=== PATIENT | female | born 1990 | race Caucasian/White ===

== ENCOUNTER 2016-08-13 09:07 | Emergency (ER) | payer MEDICAID ==
--- NOTE | 2016-08-13 10:07 | EDM.PDOC ---
ED HPI Skin/Rash - General Chief Complaint: Skin Complaint Stated Complaint: CYST ON BOTTOM Time Seen by Provider: 08/13/16 10:06 Source: Reports: Patient History Limitations: Reports: No limitations - History of Present Illness INITIAL COMMENTS - FREE TEXT/NARRATIVE: HISTORY AND PHYSICAL: History of present illness: [Patient comes to the emergency room for evaluation of a red painful lesion over her right buttock. Has been present for the past 4 days. Patient's sister tried to express some fluid from it, but was unable to do so. Has not had any drainage. Lesion started as a pimple and has gradually grown in size and redness and increasing pain. She's been taking warm baths which has not helped. Has not taken any fsye-usl-iqctray medications for discomfort. She admits to being but isn't sure how far along she is. Has had 2 positive home tests. Her last menstrual period was 6 years ago per her report. She is scheduled to be evaluated by OB on August 30. She's had some occasional vomiting which she attributes to her . Denies overt fevers but admits to having episodes of feeling warm and cold which she also attributes to .] Review of systems: As per history of present illness and below otherwise all systems reviewed and negative. Past medical history: As per history of present illness and as reviewed below otherwise noncontributory. Surgical history: As per history of present illness and as reviewed below otherwise noncontributory. Social history: No reported history of drug or alcohol abuse. Family history: As per history of present illness and as reviewed below otherwise noncontributory. Physical exam: HEENT: Atraumatic, normocephalic. Abdomen: Soft, nondistended, nontender. Uterus palpated mcfp between the symphysis pubis and umbilicus. Negative for masses, guarding or rebound. Negative for costovertebral tenderness. Genitourinary: Deferred. Rectal: Deferred. Skin: Warm dry pink and intact. 7mm x 5mm area of erythema to R mid buttock, extending laterally from R gluteal fold. Central area of induration is 3mm x 4mm. Is exquisitely tender w/ palpation. There is no fluctuance. Neuro: Awake, alert, oriented. Cranial nerves II through XII unremarkable. Cerebellum unremarkable. Motor and sensory unremarkable throughout. Exam nonfocal. Diagnostics: [Urine , quantitative hCG] Impression: [R buttock abscess ] Plan: [Quant correlates with a 7-8 week . Clindamycin 300mg (#28) si po q 6 hours x 7 days 0 RF's for buttock abscess. Warm Epsom salt soaks several times per day. Tylenol for discomfort. She is to followup with primary care one week for reevaluation of her buttock abscess and keep appointment with OB as scheduled. All of her questions are answered concerns are addressed. She is in agreement with today's plan. ] Definitive disposition and diagnosis as appropriate pending reevaluation and review of above. 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: Musculoskeletal History: Reports: None Neurological History: Reports: None Psychiatric History: Reports: None Endocrine/Metabolic History: Reports: None - Infectious Disease History Infectious Disease History: Reports: None - Past Surgical History HEENT Surgical History: Reports: None Female Surgical History: Reports: None Musculoskeletal Surgical History: Reports: Other (see below) Other Musculoskeletal Surgeries/Procedures:: right knee, ankle sx Social & Family History - Family History Family Medical History: Noncontributory - Tobacco Use Smoking Status *Q: Current Every Day Smoker Years of Tobacco use: 12 Packs/Tins Daily: 1 - Recreational Drug Use Recreational Drug Use: Yes Recreational Drug Type: Reports: Marijuana/Hashish ED ROS GENERAL - Review of Systems Review Of Systems: ROS reveals no pertinent complaints other than HPI. ED EXAM, SKIN/RASH Exam: See Below Course - Vital Signs Last Recorded V/S: Last Vital Signs Temp 97.9 F 08/13/16 09:29 Pulse 78 08/13/16 11:23 Resp 16 08/13/16 11:23 BP 132/72 08/13/16 11:23 Pulse Ox 98 08/13/16 11:23 - Orders/Labs/Meds Labs: Laboratory Tests 08/13/16 08/13/16 08/13/16 Range/Units 09:45 09:45 10:25 HCG, Quant 91598.9 mIU/mL Urine Color YELLOW Urine Appearance HAZY Urine pH 6.5 (5.0-8.0) Ur Specific [place] 1.010 (1.001-1.035) Urine Protein NEGATIVE (NEGATIVE) mg/dL Urine Glucose (UA) NEGATIVE (NEGATIVE) mg/dL Urine Ketones NEGATIVE (NEGATIVE) mg/dL Urine Occult Blood NEGATIVE (NEGATIVE) Urine Nitrite NEGATIVE (NEGATIVE) Urine Bilirubin NEGATIVE (NEGATIVE) Urine Urobilinogen 0.2 (<2.0) EU/dL Ur Leukocyte Esterase SMALL (NEGATIVE) Urine RBC 0-3 (0-2/HPF) Urine WBC 20-30 (0-5/HPF) Ur Epithelial Cells FEW (NONE-FEW) Urine Bacteria 1+ H (NEGATIVE) Urine HCG, Qual POSITIVE (NEGATIVE) Departure - Departure Time of Disposition: 11:15 Disposition: Home, Self-Care 01 Condition: good Clinical Impression: Abscess Instructions: Abscess Referrals: PCP,None [Primary Care Provider] - Forms: ED Department Discharge Additional Instructions: The following information is given to patients seen in the emergency department who are being discharged to home. This information is to outline your options for follow-up care. We provide all patients seen in our emergency department with a follow-up referral. The need for follow-up, as well as the timing and circumstances, are variable depending upon the specifics of your emergency department visit. If you don't have a primary care physician on staff, we will provide you with a referral. We always advise you to contact your personal physician following an emergency department visit to inform them of the circumstance of the visit and for follow-up with them and/or the need for any referrals to a consulting specialist. The emergency department will also refer you to a specialist when appropriate. This referral assures that you have the opportunity for follow-up care with a specialist. All of these measure are taken in an effort to provide you with optimal care, which includes your follow-up. Under all circumstances we always encourage you to contact your private physician who remains a resource for coordinating your care. When calling for follow-up care, please make the office aware that this follow-up is from your recent emergency room visit. If for any reason you are refused follow-up, please contact the [facility] emergency department at and asked to speak to the emergency department charge nurse. [facility] [address] [place] [id number] Establish care with a local primary care provider and followup there within the next 7 days. Take antibiotics as prescribed. Take warm Epsom salt baths as discussed. May take Tylenol as needed. Return to ER as needed and as discussed. Keep scheduled OB appointment.
[2016-08-13 11:25] VITALS: BP 132/72
== END 2016-08-13 11:23 | disposition home or self-care (01) ==
LOC: MW.ED 09:07
DX: L02.31 Cutaneous abscess of buttock (principal); R11.10 Vomiting, unspecified; F17.210 Nicotine dependence, cigarettes, uncomplicated; Z79.899 Other long term (current) drug therapy
CPT/HCPCS: 36415; 81001; 81025; 84702; 99283